=== PATIENT | female | born 1965 | race Caucasian/White ===

== ENCOUNTER 2019-01-14 14:22 | Observation (INO) ==
[2019-01-14] MEDS ORDERED: IOPAMIDOL 100 ML BOTTLE IV ONE (14:23)
[2019-01-14] MEDS ORDERED: METHOCARBAMOL 1,000 MG/10 ML VIAL IV ONE (15:05)
--- NOTE | 2019-01-14 15:09 | Emergency Department Note ---
General Adult HPI - General Chief complaint: Rib Pain Stated complaint: left rib pain, sob Time Seen by Provider: 01/14/19 15:04 Source: patient Mode of arrival: ambulatory Limitations: no limitations - History of Present Illness HPI Narrative: 53-year-old female patient presents to the clinic with one day history of left chest wall pain. Patient tells me she was backing away from a group of bees on her porch yesterday when she inadvertently tripped falling backwards. She describes falling approximately 2 feet down on some form of metallic bar. Since that time she's had severe pain. She admits to a nonproductive cough since the injury. She is a current daily smoker. She admits to drinking alcohol frequently. Her last intake of alcohol was last Thursday. She admits to mild shortness of breath secondary to pain with deep breathing. She denies any fever, sweats, chills, palpitations, abdominal pain, nausea, vomiting, or diarrhea. - Related Data Home Medications Medication Instructions Recorded Confirmed Sertraline [Zoloft] 12.5 mg PO DAILY 07/01/17 07/05/17 Previous Rx's Medication Instructions Recorded Albuterol Sulfate [Proair Hfa] 8.5 gm IH Q4-5HP PRN #1 hfa.[email or web address] 07/01/17 traMADol [Ultram] 50 mg PO Q4-6HP PRN #14 tab 07/01/17 traMADol [Ultram] 50 mg PO Q6HP PRN #40 tab 07/05/17 Allergies Allergy/AdvReac Type Severity Reaction Status Date / Time codeine Allergy Intermediate Other Verified 07/01/17 05:13 Review of Systems All systems ED: reviewed and negative except as stated. Past Medical History - Past Medical History Medical history: Reports: non-contributory Surgical history ED: Reports: non-contributory - Social History smoking status: Current every day smoker Alcohol use: Reports: Rarely Drug use: Reports: none Physical Exam Limitations: no limitations General appearance: alert, in no apparent distress, tearful Head: atraumatic, normocephalic Eye: Present: normal appearance, PERRL, EOMI. Absent: scleral icterus, conjunctival injection ENT: normal oropharynx, mucous membranes moist Neck: Present: trachea midline. Absent: lymphadenopathy, thyromegaly Chest: Present: normal inspection, symmetric chest wall rise, tenderness (posterior left chest wall. No fell segment. No crepitus.) Respiratory: Present: other (rhonchi at the bases. Decreased lung sounds throughout.). Absent: wheezes Cardiovascular: Present: tachycardia, normal heart sounds. Absent: systolic murmur, diastolic murmur Abdominal: Present: soft. Absent: distention, tenderness Extremities: Absent: pedal edema, pretibial edema, calf tenderness Back: Present: normal inspection. Absent: vertebral tenderness Neurological: Present: alert, oriented X3 Psychiatric: Present: anxious, tearful Skin: Present: warm, dry, intact, other (no obvious hematoma at the site of impact.) Course Course Narrative: Patient was brought into emergency departments and the history of physical exam is performed. Saline lock was established routine laboratory studies were drawn. X-ray of both her chest and left rib cage were obtained. After returning from radiology she was given 0.5 of Dilaudid and Robaxin 1000 mg slow IV push. During administration she became somewhat nauseated and displayed suspicious jerking activity. Upon reevaluation the patient was feeling slightly better. Her pain is decreased to 5/10. She was actively nauseated and vomiting. She was given Zofran 4 mg IV push. She continued to be tachycardic 120s. She vomited a second time and a repeat Zofran 4 mg IV push was provided. I reviewed her laboratory studies. Her CBC showed a normal white blood cell count 6.9. Red blood cells 4.96, hemoglobin elevated at 17.4, hematocrit elevated at 52.1, MCV elevated at 104.9. She showed no left shift. CMP chloride 94, anion gap elevated 21.0, AST 123, ALT 56, alkaline phosphatase 128, troponin less than 0.01. Upon reevaluation patient continued to be very anxious, tachycardic, and in moderate pain. After reviewing the previous laboratory studies I consulted with my collaborating physician Dr. Stewart about my concerns. At this time it was thought to work her up for PE. The d-dimer was obtained and was elevated at 1.29. CT angiogram of the chest was obtained that did not show any acute PE. There was noted emphysematous changes and pulm onary hypertension associated with her COPD. I reevaluated the patient once again and informed her that no embolus was noted. I had a lengthy conversation about alcohol use with her. She admitted once again to drinking heavily but was very jacobsen in telling me "I have not had anything to drink since his last Thursday". Suspecting some form of alcohol withdrawal, she was given 1 mg of Ativan IV. Upon reassessment she tells me she feels a bit more calm. We were about to discharge her from the emergency department when she was noted to be profoundly hypoxic on room air. Her SPO2 decreased to 83 on room air. We placed her back on the oxygen via nasal cannula at 2 L/m. I contacted my collaborating physician once again who reevaluated the patient with me. He recommended DuoNeb treatment and was provided to the patient. During repeat assessment she was still noted to be tachycardic and hypoxic. A second DuoNeb treatment was provided. Unfortunately, her SPO2 remained 9091 on 2 L/m. A blood gas was ordered, obtained, and reviewed showing hypoxia with a PO2 of 54, PH 7.41, PCO2 40, HCO3 25.4. After reviewing all the data and consulting with my collaborative physician once again, it was thought best that the patient should be admitted to the hospital for further evaluation and management. I reached out to the hospitalist commercial front load operator and expressed my concerns about the patient. At this time he has consented to admit the patient to the hospital. All further treatment decisions will be carried out by the hospitalist at this time. Vital Signs Temperature 98.7 F 01/14/19 14:23 Pulse Rate 158 H 01/14/19 14:23 Respiratory Rate 28 H 01/14/19 14:23 Blood Pressure 151/103 01/14/19 14:23 Pulse Oximetry (%) 91 01/14/19 14:23 Temperature 98.3 F 01/14/19 21:35 Pulse Rate 107 H 01/14/19 22:01 Respiratory Rate 18 01/14/19 22:01 Blood Pressure 112/72 01/14/19 22:01 Pulse Oximetry (%) 94 01/14/19 22:01 Medical Decision Making - Medical Records Medical records reviewed: Yes I reviewed the patient's medical records. - Lab Data Lab results reviewed: Yes I reviewed the patient's lab results. Result diagrams: 01/14/19 15:12 01/14/19 15:12 Lab Results 05/24/19 05/24/19 05/24/19 Range/Units 15:12 15:12 15:12 WBC 6.9 (4.5-11.0) K/mcL RBC 4.96 (4.00-5.20) M/mcL Hgb 17.4 H (12.0-15.0) g/dL Hct 52.1 H (36.0-48.0) % MCV 104.9 H (80.0-100.0) fL MCH 35.0 H (26.0-34.0) pg MCHC 33.4 (31.0-36.0) g/dL RDW 14.5 (11.5-14.5) % Plt Count 280 (140-440) K/mcL MPV 8.2 (7.4-10.4) fL Gran % 61.5 (38.0-78.0) % Lymph % (Auto) 29.0 (15.5-49.0) % [place] % (Auto) 7.9 (1.0-12.0) % Eos % (Auto) 1.2 (0.0-7.0) % Baso % (Auto) 0.4 (0.0-2.0) % Gran # 4.3 (1.8-8.0) K/mcL Lymph # (Auto) 2.0 (1.5-4.8) K/mcL [place] # (Auto) 0.6 (0.1-0.9) K/mcL Eos # (Auto) 0.1 (0.0-0.7) K/mcL Baso # (Auto) 0 (0.0-0.3) K/mcL D-Dimer 1.29 H (0.00-0.40) ug/ml Sodium 138 (133-145) mmol/L Potassium 3.8 (3.3-5.1) mmol/L Chloride 94 L (96-108) mmol/L Carbon Dioxide 23 (22-30) mmol/L Anion Gap 21.0 H (8-16) BUN 10 (6-20) mg/dl Creatinine 0.6 (0.6-1.1) mg/dl GFR Calculation 103 Glucose 88 (70-105) mg/dL Calcium 8.9 (8.6-10.4) mg/dl Total Bilirubin 0.7 (0.0-1.0) mg/dL AST 123 H (0-37) U/l ALT 56 H (0-40) U/l Alkaline Phosphatase 128 H (39-117) U/L Troponin T (0-0.03) ng/ml Total Protein 7.9 (5.9-8.4) gm/dL Albumin 4.5 (3.2-5.2) gm/dL Globulin 3.4 (2.2-3.7) gm/dL Albumin/Globulin Ratio 1.3 (1.0-2.3) 01/14/19 Range/Units 15:12 WBC (4.5-11.0) K/mcL RBC (4.00-5.20) M/mcL Hgb (12.0-15.0) g/dL Hct (36.0-48.0) % MCV (80.0-100.0) fL MCH (26.0-34.0) pg MCHC (31.0-36.0) g/dL RDW (11.5-14.5) % Plt Count (140-440) K/mcL MPV (7.4-10.4) fL Gran % (38.0-78.0) % Lymph % (Auto) (15.5-49.0) % [place] % (Auto) (1.0-12.0) % Eos % (Auto) (0.0-7.0) % Baso % (Auto) (0.0-2.0) % Gran # (1.8-8.0) K/mcL Lymph # (Auto) (1.5-4.8) K/mcL [place] # (Auto) (0.1-0.9) K/mcL Eos # (Auto) (0.0-0.7) K/mcL Baso # (Auto) (0.0-0.3) K/mcL D-Dimer (0.00-0.40) ug/ml Sodium (133-145) mmol/L Potassium (3.3-5.1) mmol/L Chloride (96-108) mmol/L Carbon Dioxide (22-30) mmol/L Anion Gap (8-16) BUN (6-20) mg/dl Creatinine (0.6-1.1) mg/dl GFR Calculation Glucose (70-105) mg/dL Calcium (8.6-10.4) mg/dl Total Bilirubin (0.0-1.0) mg/dL AST (0-37) U/l ALT (0-40) U/l Alkaline Phosphatase (39-117) U/L Troponin T < 0.01 (0-0.03) ng/ml Total Protein (5.9-8.4) gm/dL Albumin (3.2-5.2) gm/dL Globulin (2.2-3.7) gm/dL Albumin/Globulin Ratio (1.0-2.3) - Radiology Data Radiology results reviewed: Yes I reviewed the patient's radiology results. - EKG Data EKG #1 EKG attestation: Yes I reviewed and interpreted this EKG. EKG results narrative: Sinus tachycardia 132 bpm. Normal axis. No ectopy or ST segment changes seen. Disposition Pt seen by PRESSURE WELDER/PA only: No (Pat) Clinical Impression: Hypoxia, Anxiety Contusion of rib on left side Qualifiers: Encounter type: initial encounter Qualified Code(s): S20.212A - Contusion of left front wall of thorax, initial encounter COPD (chronic obstructive pulmonary disease) Qualifiers: COPD type: unspecified COPD Qualified Code(s): J44.9 - Chronic obstructive pulmonary disease, unspecified Disposition: Xfer As Inpt ([facility]) Condition: Fair Instructions: Hypoxia (ED) Additional Instructions: Patient is being admitted to the hospital. All follow on care will be performed at the direction of the hospitalist. Time of Disposition: 22:25
--- NOTE | 2019-01-14 15:09 | XRay Report ---
CLINICAL INFORMATION: fall, sob COMPARISON: 07/01/2017 FINDINGS: Heart size, mediastinum and pulmonary vessels are normal. Lungs are clear. No effusions or evidence of pneumothorax. Left ribs are normal. IMPRESSION: Negative Interpreted and Authenticated by: Jerel Baxter 01/14/19
[2019-01-14] MEDS: HYDROmorphone 2 MG/ML VIAL IV PRN ×2 (15:20→23:40)
[2019-01-14] MEDS ORDERED: ONDANSETRON 4 MG/2 ML VIAL IV ONE ×2 (15:30→16:55)
[2019-01-14 16:54] LABS: Basophils # (Auto) 0 K/mcL (0.0-0.3); Basophils % (Auto) 0.4 % (0.0-2.0); Eosinophils # (Auto) 0.1 K/mcL (0.0-0.7); Eosinophils % (Auto) 1.2 % (0.0-7.0); Granulocytes % (Auto) 61.5 % (38.0-78.0); Hematocrit 52.1 % (36.0-48.0); Hemoglobin 17.4 g/dL (12.0-15.0); Mean Cell Volume 104.9 fL (80.0-100.0); Mean Corpuscular HGB Conc 33.4 g/dL (31.0-36.0); Mean Platelet Volume 8.2 fL (7.4-10.4); Monocytes # (Auto) 0.6 K/mcL (0.1-0.9); Monocytes % (Auto) 7.9 % (1.0-12.0); Platelet Count 280 K/mcL (140-440); RBC 4.96 M/mcL (4.00-5.20); Red Cell Distribution Width 14.5 % (11.5-14.5); WBC 6.9 K/mcL (4.5-11.0)
[2019-01-14 17:04] LABS: ALT/SGPT 56 U/l (0-40); AST/SGOT 123 U/l (0-37); Albumin 4.5 gm/dL (3.2-5.2); Albumin/Globulin Ratio 1.3 (1.0-2.3); Alkaline Phosphatase 128 U/L (39-117); Bilirubin,Total 0.7 mg/dL (0.0-1.0); Blood Urea Nitrogen 10 mg/dl (6-20); Calcium 8.9 mg/dl (8.6-10.4); Carbon Dioxide 23 mmol/L (22-30); Chloride 94 mmol/L (96-108); Globulin 3.4 gm/dL (2.2-3.7); Glomerular Filtration Rate 103; Glucose 88 mg/dL (70-105); Potassium 3.8 mmol/L (3.3-5.1); Sodium 138 mmol/L (133-145)
[2019-01-14] MEDS ORDERED: 0.9 % SODIUM CHLORIDE 1,000 ML IV ONE ×2 (17:36→23:26)
--- NOTE | 2019-01-14 18:47 | Cat Scan Report ---
CLINICAL INFORMATION: Shortness of breath and tachycardia COMPARISON: None. TECHNIQUE: 80 cc of Isovue-300 were injected intravenously. Using SmartPrep to maximize pulmonary artery opacification, 2.5 mm helical slices were obtained from the lung apices through the lung bases. Following reconstruction, 2.5 mm sagittal, coronal, and axial reformations were processed. The exam was reviewed at mediastinal, lung, and bone windows. The exam was performed using radiation dose optimization techniques including, but not limited to, automated exposure control, adjustment of the mA and/or kV according to patient size and use of iterative reconstruction technique. FINDINGS: The central pulmonary arteries enlarged: The main pulmonary diameter of 3 cm. This suggests pulmonary hypertension. The pulmonary arteries are well opacified without evidence of embolus. The thoracic aorta is normal in contour and caliber. There is no adenopathy in the mediastinal hilar or axillary region. Heart is normal in size and configuration without plaque in the coronary arteries. Esophagus is unremarkable. Pulmonary parenchymal windows show mild centrilobular emphysema featuring scattered bullae in the upper lobes and chronic bronchitis with elevated lung volumes and wall thickening of the bronchi. There is slight excess perfusion of the right middle lobe of doubtful clinical significance. There are no effusions or regional infiltrates. No nodules. Pleural spaces are normal. Bones and soft tissue the chest wall are unremarkable IMPRESSION: 1. Mild centrilobular emphysema 2. No evidence of pulmonary embolus. Enlargement central pulmonary arteries is suggestive of pulmonary hypertension related to COPD. 3. Moderate dilatation of the common bile duct: 15 mm. This is likely related to post cholecystectomy papillary stenosis. Interpreted and Authenticated by: Jerel Baxter 01/14/19
[2019-01-14] MEDS ORDERED: LORazepam 2 MG/ML VIAL IV ONE ×2 (19:10→20:29)
[2019-01-14] MEDS ORDERED: IPRATROPIUM/ALBUTEROL 3 ML AMPUL.NEB NEB ONE ×2 (20:30→20:58)
--- NOTE | 2019-01-14 22:09 | Internal Med History&Physical ---
Medical - H&P: [facility] Patient information: Note initiated : 01/14/19 at 10:09 pm Service Date, if different from initiated Date: [] Patient: Elise Chu a 53 y/o F admitted on for left rib pain, sob. Chief Complaint: [] Chief complaint: fall/left-sided chest pain History of present illness: Ms. Chu is a 53 year old F who lives fairly independently and carrying history of smoking or alcohol fell backward landing on a metallic bar on her left chest/back on the in an attempt to avoid bees. Over the next 24 hours patient has been experiencing increasing pleuritic chest pain involving the left side. She hasn't been able to eat or drink. She has associated increasing shortness of breath thereby prompting her to come to the ER. Initial workup was negative for acute fracture however patient was profoundly tachycardic and in distress with hypoxia requiring 8 L oxygen. Hospitalist service was consulted for admission Evaluation patient is very anxious. She was able to answer most questions and endorse history as above. She remains tremulous with heart rate over 110. She endorses to stressors in life including recent loss of job and her mother. She denies lightheadedness, palpitation, chest pressure or diaphoresis. She further denies diarrhea dysuria, weight loss, glandular swelling, fever chills. She further denies head injury. Review of systems 10 point review of system was performed and is negative except as discussed above Medical - H&P: PMH Medical history: Follows up with [facility] History of alcoholism Likely COPD from smoking Anxiety disorder Degenerative joint disease Pertinent family history: Mother Alzheimer's Social history: Lives alone Currently looking for a job Active smoker 3 times a week alcohol Functional capacity: independent ambulation Smoking status: Current every day smoker Have you smoked in the last 12 months: Yes Time spent discussing smoking cessation with patient: 3 to 10 minutes Drug use: none Alcohol use: heavy Medical - H&P: Meds Home Medications Medication Instructions Recorded Confirmed Type Albuterol Sulfate [Proair Hfa] 8.5 gm IH Q4-5HP PRN #1 hfa.aer.ad 07/01/17 01/14/19 Rx Allergies Allergy/AdvReac Type Severity Reaction Status Date / Time codeine AdvReac Mild Stomach Verified 01/15/19 07:49 Cramping/Vomiting Medical - H&P: Exam - Constitutional Vitals: Temp Pulse Resp BP Pulse Ox 98.3 F 107 H 18 112/72 94 01/14/19 21:35 01/14/19 22:01 01/14/19 22:01 01/14/19 22:01 01/14/19 22:01 General appearance: moderate distress (anxious) Exam: Alert and oriented Head normocephalic Neck no lymphadenopathy Oral cavity dry No eardischarge S1 and S2 tachycardia Diminished breath sounds bases, left-sided chest wall no evidence of bruise or localized swelling but tender to palpation Abdomen soft nontender Lower extremity no cyanosis clubbing Skin no suspicious lesion Psych alert cooperative but anxious Neuro nonfocal moving all 4 extremities Medical - H&P: Reslt - Labs CBC & Chem 7: 01/15/19 03:23 01/15/19 03:23 Labs: Short CBC 01/14/19 Range/Units 15:12 WBC 6.9 (4.5-11.0) K/mcL Hgb 17.4 H (12.0-15.0) g/dL Hct 52.1 H (36.0-48.0) % Plt Count 280 (140-440) K/mcL BMP 01/14/19 15:12 Sodium 138 Potassium 3.8 Chloride 94 L Carbon Dioxide 23 BUN 10 Creatinine 0.6 Glucose 88 Calcium 8.9 Cardiac Enzymes 01/14/19 Range/Units 15:12 Troponin T < 0.01 (0-0.03) ng/ml Liver Function 01/14/19 Range/Units 15:12 Total Bilirubin 0.7 (0.0-1.0) mg/dL AST 123 H (0-37) U/l ALT 56 H (0-40) U/l Alkaline Phosphatase 128 H (39-117) U/L Albumin 4.5 (3.2-5.2) gm/dL Medical - H&P: A/P (1) Rib contusion Current visit: No Status: Acute * Pulmonary contusion secondary to fall. Aggressive incentive spirometer use, lidocaine patch. * COPD exacerbation-start bronchodilators * Hyoxic respiratory failure- likely primary contusion, underlying COPD. Continue bronchodilators/pulmonary toilet * ETOH withdrawl-start Librium, for alcohol as needed * Elevated LFTS- likely secondary to alcoholism. Liver ultrasound * Anxiety disorder-continue SSRI * Full code * Prophylaxis heparin PLAN * Obs Admit/tele * Bronchodilators/O2 * Etoh withdrawl management * Liver ultrasound
[2019-01-14] MEDS ORDERED: ACETAMINOPHEN 325 MG TABLET PO PRN (23:37)
[2019-01-14] MEDS ORDERED: ONDANSETRON 4 MG/2 ML VIAL IV PRN (23:37)
[2019-01-14] MEDS ORDERED: MAGNESIUM SULFATE 2 GM/50 ML BAG IV PRN (23:37)
[2019-01-14] MEDS ORDERED: ACETAMINOPHEN 1,000 MG/100 ML BOTTLE IV PRN (23:37)
[2019-01-14] MEDS ORDERED: guaiFENesin/CODEINE 10 ML UDC PO PRN (23:37)
[2019-01-14] MEDS ORDERED: traZODone HCL 50 MG TABLET PO PRN (23:37)
[2019-01-14] MEDS ORDERED: LEVALBUTEROL 0.63 MG/3 ML AMPUL.NEB NEB PRN (23:37)
[2019-01-14] MEDS ORDERED: POTASSIUM CHLORIDE 20 MEQ PACKET PO PRN (23:37)
[2019-01-14] MEDS: 0.9 % SODIUM CHLORIDE 1,000 ML IV SCH (23:40)
[2019-01-15] MEDS: HYDROcodone/APAP 5/325MG TABLET PO PRN ×6 (00:01→20:26)
[2019-01-15] MEDS: IPRATROPIUM/ALBUTEROL 3 ML AMPUL.NEB NEB SCH ×7 (00:01→23:03)
[2019-01-15] MEDS ORDERED: HYDROcodone/APAP 5/325MG TABLET PO ONE ×2 (00:04→03:34)
[2019-01-15] MEDS ORDERED: IPRATROPIUM/ALBUTEROL 3 ML AMPUL.NEB NEB ONE ×3 (00:04→07:13)
[2019-01-15] MEDS: 0.9 % SODIUM CHLORIDE 1,000 ML IV SCH ×3 (00:32→22:13)
[2019-01-15] MEDS ORDERED: chlordiazePOXIDE 25 MG CAPSULE PO ONE (02:01)
[2019-01-15] MEDS: chlordiazePOXIDE 25 MG CAPSULE PO PRN ×2 (02:05→20:26)
[2019-01-15] MEDS ORDERED: ONDANSETRON 4 MG/2 ML VIAL ONE (03:35)
[2019-01-15] MEDS: 0.9 % SODIUM CHLORIDE 10 ML SYRINGE IV SCH ×3 (05:38→22:14)
[2019-01-15 05:52] LABS: Hematocrit 38.3 % (36.0-48.0); Hemoglobin 13.1 g/dL (12.0-15.0); Mean Platelet Volume 8.1 fL (7.4-10.4); Platelet Count 182 K/mcL (140-440); RBC 3.65 M/mcL (4.00-5.20); Red Cell Distribution Width 14.7 % (11.5-14.5); WBC 6.9 K/mcL (4.5-11.0)
[2019-01-15 06:14] LABS: ALT/SGPT 79 U/l (0-40); AST/SGOT 183 U/l (0-37); Albumin 3.2 gm/dL (3.2-5.2); Albumin/Globulin Ratio 1.4 (1.0-2.3); Alkaline Phosphatase 131 U/L (39-117); Bilirubin,Direct 0.9 mg/dL (0.0-0.3); Bilirubin,Total 1.6 mg/dL (0.0-1.0); Blood Urea Nitrogen 10 mg/dl (6-20); Calcium 7.1 mg/dl (8.6-10.4); Carbon Dioxide 26 mmol/L (22-30); Chloride 97 mmol/L (96-108); Gamma Glutamyl Transpeptidase 320 U/L (5-36); Globulin 2.3 gm/dL (2.2-3.7); Glomerular Filtration Rate 109; Glucose 95 mg/dL (70-105); Lactate Dehydrogenase 226 U/L (94-250); Phosphorous 3.1 mg/dL (2.7-4.5); Potassium 2.8 mmol/L (3.3-5.1); Sodium 135 mmol/L (133-145); Triglycerides 86 mg/dl (<150); Uric Acid 5.4 mg/dL (2.5-8.0)
[2019-01-15 06:50] LABS: Band Neutrophils % 5 % (0-10); Eosinophils % (Manual) 3 % (0-7); Lymphocytes % 19 % (15-49); Microcytosis 1+ (NONE SEEN); Monocytes % (Manual) 6 % (1-12); Platelet Estimate NORMAL (NORMAL); RBC Morphology ABNORM (NORMAL); Segmented Neutrophils % 67 % (38-78)
[2019-01-15] MEDS: DOCUSATE SODIUM 100 MG CAPSULE PO SCH ×2 (08:24→20:26)
[2019-01-15] MEDS: THIAMINE 100 MG TABLET PO SCH (08:24)
[2019-01-15] MEDS: MULTIVIT,THER IRON,CA,FA & MIN 1 TABLET PO SCH (08:24)
[2019-01-15] MEDS: CYANOCOBALAMIN (VITAMIN B-12) 500 MCG TABLET PO SCH ×2 (08:25→20:27)
[2019-01-15] MEDS: HEPARIN 5,000 UNIT/ML VIAL SQ SCH ×2 (08:25→20:29)
[2019-01-15] MEDS ORDERED: POTASSIUM CHLORIDE 20 MEQ PACKET PO ONE (09:40)
--- NOTE | 2019-01-15 10:03 | Internal Med Progress Note ---
Medical - PN: Subj Patient information: Note initiated : 01/15/19 at 9:59 am Service Date, if different from initiated Date: [] Patient: Elise Chu 53 y/o F admitted on 01/14/19 for left rib pain, sob. Chief Complaint: [] Interval history: Ms. Chu is a 53 year old F who lives fairly independently and carrying history of smoking or alcohol fell backward landing on a metallic bar on her left chest/back on the in an attempt to avoid bees. Over the next 24 hours patient has been experiencing increasing pleuritic chest pain involving the left side. She hasn't been able to eat or drink. She has associated increasing shortness of breath thereby prompting her to come to the ER. Initial workup was negative for acute fracture however patient was profoundly tachycardic and in distress with hypoxia requiring 8 L oxygen. Hospitalist service was consulted for admission Evaluation patient is very anxious. She was able to answer most questions and endorse history as above. She remains tremulous with heart rate over 110. She endorses to stressors in life including recent loss of job and her mother. She denies lightheadedness, palpitation, chest pressure or diaphoresis. She further denies diarrhea dysuria, weight loss, glandular swelling, fever chills. She further denies head injury. 01/15-patient looking better. Tachycardia improved now in mid 90s. Low magnesium and potassium on replacement. Continuing Librium for withdrawal symptoms. We'll 50 cc bedside incentive spirometer. Improving localized pain. Start lidocaine patch. Continue nutritional support/PT OT. LFTs elevated. Li deandra ultrasound. Await echocardiogram. - Constitutional Vitals: Vital Signs Temp Pulse Resp BP Pulse Ox 98.9 F 90 22 97/65 91 01/15/19 07:38 01/15/19 07:23 01/15/19 07:38 01/15/19 07:38 01/15/19 07:38 Period Temp Pulse Resp BP Sys/Moses Pulse Ox Last 24 Hr 98.3 F-98.9 F 73-158 12-29 96-175/61-148 84-99 Intake and Output 01/14/19 01/15/19 01/15/19 21:59 05:59 13:59 Intake Total 1000 2740 Output Total 525 Balance 1000 2215 Weight 128 lb 131 lb 9.6 oz Intake & Output: Intake & Output 01/14/19 01/15/19 01/15/19 21:59 05:59 13:59 Intake Total 1000 2740 Output Total 525 Balance 1000 2215 Weight 128 lb 131 lb 9.6 oz Intake: IV 1000 2000 Sodium Chloride 0.9% 1,000 ml @ 1000 2000 Wide Open IV BOLUS DOUGLAS Rx#: [id number] Oral 740 Output: Void Amount 375 Stool 150 Other: Meal Two pieces of toast Percent of Meal Consumed 100% Feeding Ability Independent Urine Appearance Clear Urine Color Light [place] Urine Odor Strong Stool Size Moderate Stool Color Brown Green # Bowel Movements 1 General appearance: no acute distress Exam: Alert and oriented Tachycardia resolved Diminished breath sounds bases Abdomen soft nontender Medical - PN: Obj Da - Labs CBC & Chem 7: 01/15/19 03:23 01/15/19 03:23 Labs: Abnormal Lab Results 01/15/19 01/15/19 01/14/19 03:23 03:23 15:12 RBC 3.65 L Hgb Hct MCV 105.0 H MCH 35.8 H RDW 14.7 H RBC Morphology Abnorm A Microcytosis 1+ A D-Dimer 1.29 H Potassium 2.8 L* Chloride Anion Gap Creatinine 0.5 L Calcium 7.1 L Magnesium 1.0 L Total Bilirubin 1.6 H Direct Bilirubin 0.9 H GGT 320 H AST 183 H ALT 79 H Alkaline Phosphatase 131 H Total Protein 5.5 L 01/14/19 01/14/19 15:12 15:12 RBC Hgb 17.4 H Hct 52.1 H MCV 104.9 H MCH 35.0 H RDW RBC Morphology Microcytosis D-Dimer Potassium Chloride 94 L Anion Gap 21.0 H Creatinine Calcium Magnesium Total Bilirubin Direct Bilirubin GGT AST 123 H ALT 56 H Alkaline Phosphatase 128 H Total Protein Meds: Medications Acetaminophen (Tylenol) 650 mg PO Q4-6HP PRN PRN Reason: PAIN/FEVER > 101 Hydrocodone Bitart/Acetaminophen ([place] 5/325mg) 0 tab PO Q4HP PRN PRN Reason: PAIN LEVEL 3-6 Last Admin: 01/15/19 08:37 Dose: 2 tab Documented by: Albuterol/Ipratropium (Duoneb) 3 ml NEB Q4HRT [facility] Last Admin: 01/15/19 07:14 Dose: 3 ml Documented by: Chlordiazepoxide HCl (Librium) 25 mg PO Q4HP PRN PRN Reason: Alcohol Withdrawal Last Admin: 01/15/19 02:05 Dose: 25 mg Documented by: Cyanocobalamin (Vitamin B-12) 1,000 mcg PO BID [facility] Stop: 01/19/19 21:01 Last Admin: 01/15/19 08:25 Dose: 1,000 mcg Documented by: Docusate Sodium (Colace) 100 mg PO BID [facility] Last Admin: 01/15/19 08:24 Dose: 100 mg Documented by: Guaifenesin/Codeine Phosphate (Robitussin Ac) 10 ml PO Q4HP PRN PRN Reason: Cough Heparin Sodium (Porcine) (Heparin) 5,000 unit SQ Q12 [facility] Last Admin: 01/15/19 08:25 Dose: 5,000 unit Documented by: Magnesium Sulfate (Magnesium Sulfate) 2 gm in 50 mls @ 50 mls/hr IV UD PRN PRN Reason: MG = or < 1.7 Last Admin: 01/15/19 08:15 Dose: 50 mls/hr Documented by: Sodium Chloride (Sodium Chloride 0.9%) 1,000 mls @ 50 mls/hr IV .Q20H [facility] Stop: 01/17/19 11:36 Last Admin: 01/15/19 00:32 Dose: 50 mls/hr Documented by: Sodium Chloride (Sodium Chloride 0.9%) 1,000 mls @ 0 mls/hr IV BOLUS [facility] Last Infusion: 01/15/19 00:40 Dose: Infused Documented by: Acetaminophen (Ofirmev) 1,000 mg in 100 mls @ 200 mls/hr IV Q6HP PRN PRN Reason: PAIN/FEVER > 101 Iron Carb/Multivit/Dictaphone Mechanic/Folic Acid (Multivitamin W/Minerals) 1 tab PO DAILY [facility] Last Admin: 01/15/19 08:24 Dose: 1 tab Documented by: Levalbuterol HCl (Xopenex) 0.63 mg NEB Q4HP PRN PRN Reason: Shortness Of Breath Lidocaine (Lidoderm) 1 patch TOPICAL DAILY@1000 DOUGLAS Lidocaine (Lidoderm) 0 patch TOPICAL DAILY@2200 DOUGLAS Ondansetron HCl (Zofran) 4 mg IV Q4-6HP PRN PRN Reason: Nausea And Vomiting Last Admin: 01/15/19 03:33 Dose: 4 mg Documented by: Potassium Chloride (Klor-Con) 40 meq PO DAILYP PRN PRN Reason: K+ < 3.5 Last Admin: 01/15/19 08:15 Dose: 40 meq Documented by: Senna/Docusate Sodium (Senna Plus Tablet) 1 tab PO HS DOUGLAS Sodium Chloride (Saline Flush) 10 ml IV Q8 DOUGLAS Last Admin: 01/15/19 05:38 Dose: Not Given Documented by: Thiamine HCl (Vitamin B1) 100 mg PO DAILY DOUGLAS Last Admin: 01/15/19 08:24 Dose: 100 mg Documented by: Trazodone HCl (Desyrel) 50 mg PO HSP PRN PRN Reason: Insomnia Medical - PN: A/P - Time Spent With Patient Total time spent is greater than 50% in coordination of care (as documented) at patient's floor/unit and/or counseling patient: 25 - 35 minutes (1) Rib contusion Status: Acute Assessment and plan: * Pleuritic chest pain secondary to fall. Continue incentive spirometer use, lidocaine patch. * COPD clinically improving on bronchodilators * Low potassium and magnesium continue oral/IV replacement * Hyoxic respiratory failure-clinically improved. Oxygen down from 8 L to 2 L. Sats around 90. * ETOH withdrawl- oral Librium, continue thiamine/B12 * Elevated LFTS- consistent with alcoholism AST ALT ratio. Await liver ultrasound * Volume depletion clinically improved with crystalloids * Anxiety disorder-continue SSRI * Full code * Prophylaxis heparin PLAN * Bronchodilators/O2/incentive spirometer/lidocaine patch * Oral and IV potassium and magnesium replacement * Etoh withdrawl management * Await liver US * Nutritional support/PT OT Current Visit: No Medical - PN: Qual - VTE Deep Vein Thrombosis/Pulmonary Embolism Present on Admission: No
[2019-01-15] MEDS: LIDOCAINE PATCH TOPICAL SCH (11:09)
--- NOTE | 2019-01-15 11:33 | Ultrasound Report ---
CLINICAL INFORMATION: increased liver enzymes and bilirubin COMPARISON: None. FINDINGS: The gallbladder is surgically absent. The common bile duct is markedly dilated 16 mm. There is no mass, stone or other cause identified for distal biliary obstruction. Liver and pancreas are normal in size and echotexture without focal lesion. No free fluid IMPRESSION: Marked dilatation of the common bile duct. Although no stone or mass in the intrapancreatic portion of the common bile duct is identified: This region is not well seen sonographically. Consider: Abdominal MRI MRCP Interpreted and Authenticated by: Jerel Baxter 01/15/19
[2019-01-15] MEDS: NICOTINE 14 MG PATCH TOPICAL SCH (14:40)
[2019-01-15] MEDS: SENNOSIDES/DOCUSATE SODIUM 1 TAB TABLET PO SCH ×2 (20:27→20:48)
[2019-01-15] MEDS ORDERED: LIDOCAINE PATCH TOPICAL SCH (22:00)
[2019-01-16] MEDS: 0.9 % SODIUM CHLORIDE 1,000 ML IV SCH (00:42)
[2019-01-16] MEDS: HYDROcodone/APAP 5/325MG TABLET PO PRN ×3 (00:53→09:32)
[2019-01-16] MEDS: IPRATROPIUM/ALBUTEROL 3 ML AMPUL.NEB NEB SCH ×2 (03:34→07:24)
[2019-01-16] MEDS: 0.9 % SODIUM CHLORIDE 10 ML SYRINGE IV SCH (05:14)
[2019-01-16 05:27] LABS: Hematocrit 36.2 % (36.0-48.0); Mean Cell Volume 107.1 fL (80.0-100.0); Mean Corpuscular HGB Conc 33.3 g/dL (31.0-36.0); Mean Platelet Volume 8.3 fL (7.4-10.4); Platelet Count 160 K/mcL (140-440); RBC 3.37 M/mcL (4.00-5.20); Red Cell Distribution Width 14.5 % (11.5-14.5)
[2019-01-16 05:53] LABS: ALT/SGPT 73 U/l (0-40); AST/SGOT 83 U/l (0-37); Albumin 3.3 gm/dL (3.2-5.2); Albumin/Globulin Ratio 1.4 (1.0-2.3); Alkaline Phosphatase 126 U/L (39-117); Bilirubin,Direct 0.2 mg/dL (0.0-0.3); Bilirubin,Total 0.7 mg/dL (0.0-1.0); Blood Urea Nitrogen 8 mg/dl (6-20); Carbon Dioxide 29 mmol/L (22-30); Chloride 102 mmol/L (96-108); Gamma Glutamyl Transpeptidase 369 U/L (5-36); Globulin 2.4 gm/dL (2.2-3.7); Glomerular Filtration Rate 103; Glucose 111 mg/dL (70-105); Lactate Dehydrogenase 173 U/L (94-250); Magnesium 1.7 mg/dL (1.6-2.5); Potassium 4.6 mmol/L (3.3-5.1); Sodium 139 mmol/L (133-145); Triglycerides 82 mg/dl (<150); Uric Acid 4.1 mg/dL (2.5-8.0)
[2019-01-16 07:19] LABS: Anisocytosis FEW (NONE SEEN); Eosinophils % (Manual) 3 % (0-7); Lymphocytes % 26 % (15-49); Macrocytosis 2+ (NONE SEEN); Monocytes % (Manual) 2 % (1-12); Platelet Estimate NORMAL (NORMAL); RBC Morphology ABNORM (NORMAL); Segmented Neutrophils % 69 % (38-78)
[2019-01-16] MEDS: THIAMINE 100 MG TABLET PO SCH (09:27)
[2019-01-16] MEDS: HEPARIN 5,000 UNIT/ML VIAL SQ SCH (09:27)
[2019-01-16] MEDS: MULTIVIT,THER IRON,CA,FA & MIN 1 TABLET PO SCH (09:28)
[2019-01-16] MEDS: NICOTINE 14 MG PATCH TOPICAL SCH (09:28)
[2019-01-16] MEDS: LIDOCAINE PATCH TOPICAL SCH (09:29)
[2019-01-16] MEDS: DOCUSATE SODIUM 100 MG CAPSULE PO SCH (09:38)
[2019-01-16] MEDS: CYANOCOBALAMIN (VITAMIN B-12) 500 MCG TABLET PO SCH (09:47)
--- NOTE | 2019-01-16 10:40 | Discharge Summary ---
Medical - DS: Prov Patient information: Note initiated : 01/16/19 at 10:33 am Service Date, if different from initiated Date: [] Patient: Elise Chu 53 y/o F admitted on 01/14/19 for left rib pain, sob. Chief Complaint: [] Date of admission: 01/14/19 23:35 Discharge date: 01/16/19 Consults: 01/14/19 Consult to Physician [CONS] Stat Comment: Consulting Provider: Tristan Morgan Reason For Exam: Physician to Consult Medical - DS: Meds - Discharge Medications Prescriptions: HYDROcodone/APAP 5/325MG [[place] 5-325Mg] 1 tab PO Q8HP PRN #14 tablet PRN Reason: Pain Level 3-6 Lidocaine [Lidoderm] 1 patch TOPICAL DAILY@1000 #3 patch Sennosides/Docusate Sodium [Senna Plus Tablet] 1 tab PO HS #30 tab Active and Home Medications: Home Medications Albuterol Sulfate [Proair Hfa] 8.5 gm IH Q4-5HP PRN #1 hfa.aer.ad 07/01/17 [Rx Confirmed 01/14/19 Last Taken Unknown] HYDROcodone/APAP 5/325MG [[place] 5-325Mg] 1 tab PO Q8HP PRN #14 tablet 01/16/19 [Rx Last Taken Unknown] Lidocaine [Lidoderm] 1 patch TOPICAL DAILY@1000 #3 patch 01/16/19 [Rx Last Taken Unknown] Sennosides/Docusate Sodium [Senna Plus Tablet] 1 tab PO HS #30 tab 01/16/19 [Rx Last Taken Unknown] Medical - DS: Hosp Hospital course: Discharge diagnosis * Pleuritic chest pain secondary to fall/contusion. Clinical improvement noted with continued incentive spirometer use, lidocaine patch and as needed opioids. Discharging home in stable state * COPD clinically improving on bronchodilators. Advised to refrain from smoking. ECHO Nl EF 65% * Low potassium and magnesium resolved with oral/IV replacement * Hyoxic respiratory failure-clinically improved. Now on room air * ETOH withdrawl- no significant overnight events. Continued on oral Librium,/thiamine/B12 * Elevated LFTS- consistent with alcoholism AST ALT ratio. Gradual downtrending noted. Liver ultrasound no significant abnormality except for dilated CBD without stone. * Volume depletion clinically resolved with crystalloids * Tobacco dependence-counseled. On nicotine patch * Anxiety stable on SSRI Brief hospital course Ms. Chu is a 53 year old F who lives fairly independently and carrying history of smoking or alcohol fell backward landing on a metallic bar on her left chest/back on the in an attempt to avoid bees. Over the next 24 hours patient has been experiencing increasing pleuritic chest pain involving the left side. She hasn't been able to eat or drink. She has associated increasing shortness of breath thereby prompting her to come to the ER. Initial workup was negative for acute fracture however patient was profoundly tachycardic and in distress with hypoxia requiring 8 L oxygen. Hospitalist service was consulted for admission Evaluation patient is very anxious. She was able to answer most questions and endorse history as above. She remains tremulous with heart rate over 110. She endorses to stressors in life including recent loss of job and her mother. She denies lightheadedness, palpitation, chest pressure or diaphoresis. She further denies diarrhea dysuria, weight loss, glandular swelling, fever chills. She further denies head injury. 01/15-patient looking better. Tachycardia improved now in mid 90s. Low magnesium and potassium on replacement. Continuing Librium for withdrawal s ymptoms. Continue bedside incentive spirometer. Improving localized pain. Start lidocaine patch. Continue nutritional support/PT OT. LFTs elevated. Liver ultrasound. Await echocardiogram. 01/16- LFTs downtrending. No signs of withdrawal. Clinical improvement. Tachycardia resolved. Tolerating diet. Left-sided rib pain/pleuritic chest pain much improved. Requesting discharge. Liver ultrasound no significant finding except for dilated CBD without stone. No elevation in bilirubin. LFTs downtrending. ECHO Nl EF 65%. Discharge with instructions and medications as below. Recommend following up with [facility]. Counseled on smoking and alcohol cessation Discharge diagnosis: . - Time Spent with Patient Total time spent providing and/or coordinating discharge services: Greater than 30 minutes Medical - DS: Exam - Constitutional Vitals: Vital Signs Temp Pulse Resp BP Pulse Ox 01/16/19 08:00 98.3 F 14 122/76 95 01/16/19 07:34 78 14 01/16/19 07:25 96 01/16/19 03:41 98.3 F 98 H 28 H 116/78 95 01/16/19 02:53 101 H 18 93 01/15/19 23:26 97.8 F 100 H 18 103/57 93 01/15/19 23:23 87 18 01/15/19 23:06 98 H 16 103/57 93 01/15/19 19:53 93 01/15/19 19:24 99.5 F H 16 119/76 01/15/19 19:20 100 H 119/76 92 01/15/19 19:00 73 18 01/15/19 16:35 89 94 01/15/19 16:01 97.7 F 96 H 104/70 92 01/15/19 15:00 71 18 01/15/19 12:00 98.8 F 16 114/62 94 01/15/19 11:27 78 16 Intake and Output 01/15/19 01/16/19 01/16/19 21:59 05:59 13:59 Intake Total 2550 1040 Output Total 1300 1350 Balance 1250 -310 Intake: IV 1000 Sodium Chloride 0.9% 1,000 ml @ 1000 50 mls/hr IV .Q20H [facility] Rx#: [id number] Oral 1550 1040 Output: Void Amount 1300 1350 Other: Meal Dinner [place] Percent of Meal Consumed 90 100% Feeding Ability Independent Independent Urine Appearance Clear Urine Color Dark Yellow Weight 139 lb 1.6 oz Medical - DS: Data Labs on day of discharge: Labs from last 24 hours 01/16/19 01/16/19 03:35 03:35 WBC 5.0 RBC 3.37 L Hgb 12.0 Hct 36.2 MCV 107.1 H MCH 35.7 H MCHC 33.3 RDW 14.5 Plt Count 160 MPV 8.3 Total Counted 100 Seg Neutrophils % 69 Band Neutrophils % Not Reportable Lymphocytes % 26 Monocytes % (Manual) 2 Eosinophils % (Manual) 3 Platelet Estimate Normal RBC Morphology Abnorm A Anisocytosis Few A Macrocytosis 2+ A Sodium 139 Potassium 4.6 Chloride 102 Carbon Dioxide 29 Anion Gap 8.0 BUN 8 Creatinine 0.6 GFR Calculation 103 Glucose 111 H Uric Acid 4.1 Calcium 8.0 L Phosphorus 3.0 Magnesium 1.7 Total Bilirubin 0.7 Direct Bilirubin 0.2 GGT 369 H AST 83 H ALT 73 H Alkaline Phosphatase 126 H Lactate Dehydrogenase 173 Total Protein 5.7 L Albumin 3.3 Globulin 2.4 Albumin/Globulin Ratio 1.4 Triglycerides 82 Medical - DS: A/P - Patient/Caregiver Discharge Instructions Activity: increase activity as tolerated Diet: Regular Diet Additional Instructions: Refrain from smoking and alcohol Continue lidocaine patch and oral Tylenol/hydrocodone as needed for pain relief [facility] P[facility] 5-7 days Prescriptions: HYDROcodone/APAP 5/325MG [[place] 5-325Mg] 1 tab PO Q8HP PRN #14 tablet PRN Reason: Pain Level 3-6 Lidocaine [Lidoderm] 1 patch TOPICAL DAILY@1000 #3 patch Sennosides/Docusate Sodium [Senna Plus Tablet] 1 tab PO HS #30 tab - Problem Maintenance (1) Rib contusion Status: Acute - Follow up Plan Disposition: Home, Self-Care Prognosis: Fair Rehab Potential: Fair I certify that the patient requires SNF services: No Overall status at discharge: patient is progressing back to baseline Medical - DS: Qual - VTE Deep Vein Thrombosis/Pulmonary Embolism Present on Admission: No
== END 2019-01-16 12:50 | disposition home or self-care (01) ==
LOC: ED 14:22 → ICU 14:22
PROVIDERS: ADMIT Internal Medicine; ATTEND Internal Medicine

== ENCOUNTER 2024-07-14 15:21 | Inpatient (IN) ==
[2024-07-14] MEDS ORDERED: IOPAMIDOL 100 ML BOTTLE IV ONE (15:22)
[2024-07-14] MEDS: 0.9 % SODIUM CHLORIDE 1,000 ML IV ONE (16:22)
[2024-07-14] MEDS: HYDROmorphone 1 MG/ML SYRINGE IV ONE (16:22)
[2024-07-14 16:35] LABS: Basophils # (Auto) 0.02 K/mcL (0.00-0.30); Basophils % (Auto) 0.3 % (0.0-2.0); Eosinophils # (Auto) 0.25 K/mcL (0.00-0.70); Eosinophils % (Auto) 4.1 % (0.0-7.0); Hematocrit 49.8 % (34.1-44.9); Hemoglobin 16.3 g/dL (11.2-15.7); Lymphocytes # (Auto) 2.83 K/mcL (1.50-4.80); Lymphocytes % (Auto) 46.5 % (15.5-49.0); Mean Cell Volume 97.5 fL (80.0-100.0); Mean Corpuscular HGB Conc 32.7 g/dL (31.0-36.0); Mean Platelet Volume 9.1 fL (8.8-12.5); Monocytes # (Auto) 0.43 K/mcL (0.10-0.90); Monocytes % (Auto) 7.1 % (1.0-12.0); Neutrophils % (Auto) 41.7 % (38.0-78.0); Platelet Count 280 K/mcL (140-440); RBC 5.11 M/mcL (3.59-5.38); Red Cell Distribution Width 13.2 % (11.5-14.5); WBC 6.1 K/mcL (4.5-11.0)
[2024-07-14] MEDS: KETOROLAC 30 MG/ML VIAL IV ONE (16:43)
[2024-07-14 17:02] LABS: ALT/SGPT 9 U/L (<40); AST/SGOT 17 U/L (<32); Albumin 4.2 gm/dL (3.2-5.2); Albumin/Globulin Ratio 1.4 (1.0-2.3); Alkaline Phosphatase 68 U/L (39-117); Bilirubin,Total < 0.2 mg/dL (0.1-1.0); Blood Urea Nitrogen 9 mg/dL (6-20); Calcium 9.6 mg/dL (8.6-10.4); Carbon Dioxide 24 mmol/L (22-30); Chloride 104 mmol/L (96-108); Globulin 3.1 gm/dL (2.2-3.7); Glomerular Filtration Rate 98; Glucose 109 mg/dL (70-105); Potassium 4.1 mmol/L (3.3-5.1); Sodium 143 mmol/L (133-145)
[2024-07-14] MEDS: IPRATROPIUM/ALBUTEROL 3 ML AMPUL.NEB NEB ONE ×2 (17:43→19:12)
[2024-07-14] MEDS: methylPREDNISolone SOD SUCC 125 MG/2 ML VIAL IV ONE (18:05)
[2024-07-14] MEDS: cefTRIAXone 2 GM in DEXTROSE 5% IN WATER 50 ML IV ONE (18:46)
[2024-07-14] MEDS: AZITHROMYCIN 250 MG TABLET PO ONE (18:46)
[2024-07-14 20:19] LABS: Appearance,Urine Clear (Clear); Bacteria,Urine Few /hpf (0); Bilirubin,Urine Negative (Negative); Color,Urine Yellow; Glucose,Urine (UA) Negative (Negative); Ketones,Urine Negative (Negative); Leukocyte Esterase,Urine Negative /uL (Negative); Nitrate,Urine Negative (Negative); PH,Urine 5.5 (5.0-9.0); Protein,Urine Negative (Negative); Urine Blood Negative ery/mcL (Negative); Urine RBC 1 /hpf (0-3); Urine Squamous Epithelial Cell 6 /hpf (0-4); Urine WBC 2 /hpf (0-4); Urobilinogen,Urine Normal
[2024-07-14] MEDS ORDERED: POLYETHYLENE GLYCOL 3350 17 GM PACKET PO PRN (20:28)
[2024-07-14] MEDS ORDERED: ACETAMINOPHEN 325 MG TABLET PO PRN (20:28)
[2024-07-14] MEDS ORDERED: SENNOSIDES 1 TABLET PO PRN (20:28)
[2024-07-14] MEDS ORDERED: IPRATROPIUM/ALBUTEROL 3 ML AMPUL.NEB NEB PRN (20:28)
[2024-07-14] MEDS ORDERED: POTASSIUM CHLORIDE 20 MEQ TABLET PO PRN ×2 (20:28)
[2024-07-14] MEDS ORDERED: morphine 4 MG/ML VIAL IV PRN (20:28)
[2024-07-14] MEDS ORDERED: POTASSIUM CHLORIDE 40 MEQ in DEXTROSE 5% IN WATER 500 ML IV PRN (20:28)
[2024-07-14] MEDS: BUDESONIDE 0.5 MG/2 ML AMPUL.NEB NEB SCH (21:23)
[2024-07-14] MEDS: PIPERACILLIN SODIUM/TAZOBACTAM 3.375 GM in DEXTROSE 5% IN WATER 50 ML IV ONE (21:28)
[2024-07-14] MEDS: HYDROcodone/APAP 5/325MG TABLET PO PRN (21:33)
[2024-07-14] MEDS: METHOCARBAMOL 750 MG TABLET PO SCH (21:33)
[2024-07-14] MEDS: DOCUSATE SODIUM 100 MG CAPSULE PO SCH (21:34)
[2024-07-14] MEDS: 0.9 % SODIUM CHLORIDE 10 ML SYRINGE IV SCH (21:35)
[2024-07-14] MEDS: methylPREDNISolone SOD SUCC 125 MG/2 ML VIAL IV SCH (22:21)
[2024-07-14] MEDS: ONDANSETRON 4 MG/2 ML VIAL IV PRN (22:21)
[2024-07-14] MEDS: HYDROmorphone 0.5 MG/0.5 ML SYRINGE ONE (23:32)
[2024-07-15] MEDS: IPRATROPIUM/ALBUTEROL 3 ML AMPUL.NEB NEB SCH (00:09)
[2024-07-15] MEDS: PIPERACILLIN SODIUM/TAZOBACTAM 3.375 GM in DEXTROSE 5% IN WATER 100 ML IV SCH (01:38)
[2024-07-15] MEDS: HYDROmorphone 0.5 MG/0.5 ML SYRINGE ONE (05:05)
[2024-07-15 06:36] LABS: ALT/SGPT 8 U/L (<40); AST/SGOT 17 U/L (<32); Albumin 3.9 gm/dL (3.2-5.2); Albumin/Globulin Ratio 1.4 (1.0-2.3); Alkaline Phosphatase 60 U/L (39-117); Bilirubin,Direct < 0.2 mg/dL (0-0.3); Bilirubin,Total 0.2 mg/dL (0.1-1.0); Blood Urea Nitrogen 11 mg/dL (6-20); Calcium 9.9 mg/dL (8.6-10.4); Carbon Dioxide 24 mmol/L (22-30); Chloride 100 mmol/L (96-108); Globulin 2.8 gm/dL (2.2-3.7); Glomerular Filtration Rate 94; Glucose 162 mg/dL (70-105); Lactate Dehydrogenase 137 U/L (135-225); Phosphorous 4.5 mg/dL (2.5-4.5); Potassium 4.3 mmol/L (3.3-5.1); Sodium 139 mmol/L (133-145); Triglycerides 138 mg/dL (<150); Uric Acid 4.7 mg/dL (2.5-8.0)
[2024-07-15] MEDS: METOCLOPRAMIDE 10 MG/2 ML VIAL IV PRN (07:26)
[2024-07-15] MEDS ORDERED: LORazepam 2 MG/ML VIAL IV PRN (07:53)
[2024-07-15] MEDS ORDERED: methylPREDNISolone SOD SUCC 125 MG/2 ML VIAL IV SCH (07:55)
[2024-07-15] MEDS: ENOXAPARIN 40 MG/0.4 ML SYRINGE SQ SCH (08:12)
[2024-07-15] MEDS: methylPREDNISolone SOD SUCC 125 MG/2 ML VIAL IV SCH (08:12)
[2024-07-15] MEDS: MAGNESIUM SULFATE 2 GM/50 ML BAG IV PRN (10:19)
[2024-07-15] MEDS: HYDROmorphone 1 MG/ML SYRINGE IV PRN (10:20)
[2024-07-15] MEDS ORDERED: NICOTINE POLACRILEX 2 MG GUM CHEW/PARK PRN (10:35)
[2024-07-16] MEDS ORDERED: NICOTINE 21 MG PATCH TOPICAL SCH (10:00)
[2024-07-16 12:51] LABS: Basophils # (Auto) 0.01 K/mcL (0.00-0.30); Basophils % (Auto) 0.1 % (0.0-2.0); Eosinophils # (Auto) 0 K/mcL (0.00-0.70); Eosinophils % (Auto) 0 % (0.0-7.0); Hemoglobin 14.6 g/dL (11.2-15.7); Lymphocytes # (Auto) 2.14 K/mcL (1.50-4.80); Lymphocytes % (Auto) 21.1 % (15.5-49.0); Mean Cell Volume 98.7 fL (80.0-100.0); Mean Corpuscular HGB Conc 32.4 g/dL (31.0-36.0); Mean Platelet Volume 9.1 fL (8.8-12.5); Monocytes # (Auto) 0.55 K/mcL (0.10-0.90); Monocytes % (Auto) 5.4 % (1.0-12.0); Neutrophils % (Auto) 72.7 % (38.0-78.0); Platelet Count 247 K/mcL (140-440); RBC 4.56 M/mcL (3.59-5.38); Red Cell Distribution Width 13.7 % (11.5-14.5); WBC 10.1 K/mcL (4.5-11.0)
[2024-07-16 13:03] LABS: ALT/SGPT 9 U/L (<40); AST/SGOT 19 U/L (<32); Albumin 3.8 gm/dL (3.2-5.2); Albumin/Globulin Ratio 1.5 (1.0-2.3); Alkaline Phosphatase 55 U/L (39-117); Bilirubin,Direct < 0.2 mg/dL (0-0.3); Bilirubin,Total 0.2 mg/dL (0.1-1.0); Blood Urea Nitrogen 11 mg/dL (6-20); Calcium 8.8 mg/dL (8.6-10.4); Carbon Dioxide 24 mmol/L (22-30); Chloride 102 mmol/L (96-108); Globulin 2.6 gm/dL (2.2-3.7); Glomerular Filtration Rate 98; Glucose 91 mg/dL (70-105); Lactate Dehydrogenase 155 U/L (135-225); Phosphorous 2.9 mg/dL (2.5-4.5); Sodium 141 mmol/L (133-145); Triglycerides 216 mg/dL (<150); Uric Acid 5.3 mg/dL (2.5-8.0)
[2024-07-19 14:08] LABS: Quant TB Gold + 4T Incubated Negative (Negative); TB2-NIL 0.01 IU/mL
[2024-07-19 17:30] LABS: Aspergillus Antigen NOT DETECTED; Aspergillus Antigen Index <0.50
[2024-07-20 16:50] LABS: Specimen Source SPUTUM
== END 2024-07-15 11:49 | disposition left against medical advice (07) | DRG 189 ==
LOC: ED 15:21 → MEDSUR 20:25
PROVIDERS: ADMIT Internal Medicine; ATTEND Internal Medicine

== ENCOUNTER 2024-07-16 12:02 | Observation (INO) ==
[2024-07-16] MEDS: NICOTINE 21 MG PATCH TOPICAL ONE (13:13)
[2024-07-16] MEDS ORDERED: POTASSIUM CHLORIDE 20 MEQ TABLET PO PRN ×2 (13:50)
[2024-07-16] MEDS ORDERED: POTASSIUM CHLORIDE 40 MEQ in DEXTROSE 5% IN WATER 500 ML IV PRN (13:50)
[2024-07-16] MEDS ORDERED: POLYETHYLENE GLYCOL 3350 17 GM PACKET PO PRN (13:50)
[2024-07-16] MEDS ORDERED: METOCLOPRAMIDE 10 MG/2 ML VIAL IV PRN (13:50)
[2024-07-16] MEDS ORDERED: SENNOSIDES 1 TABLET PO PRN (13:50)
[2024-07-16] MEDS ORDERED: MAGNESIUM SULFATE 2 GM/50 ML BAG IV PRN (13:50)
[2024-07-16] MEDS: BUDESONIDE 0.5 MG/2 ML AMPUL.NEB NEB SCH (14:03)
[2024-07-16] MEDS: IPRATROPIUM/ALBUTEROL 3 ML AMPUL.NEB NEB ONE (14:03)
[2024-07-16] MEDS: IPRATROPIUM/ALBUTEROL 3 ML AMPUL.NEB NEB SCH (14:03)
[2024-07-16] MEDS: methylPREDNISolone SOD SUCC 40 MG/ML VIAL IV SCH (14:31)
[2024-07-16] MEDS: HYDROmorphone 0.5 MG/0.5 ML SYRINGE IV PRN (14:31)
[2024-07-16] MEDS: PIPERACILLIN SODIUM/TAZOBACTAM 3.375 GM in DEXTROSE 5% IN WATER 50 ML IV ONE (14:31)
[2024-07-16] MEDS: 0.9 % SODIUM CHLORIDE 10 ML SYRINGE IV SCH (14:51)
[2024-07-16] MEDS: ACETAMINOPHEN 325 MG TABLET PO PRN (15:22)
[2024-07-16] MEDS: ONDANSETRON 4 MG/2 ML VIAL IV PRN (16:19)
[2024-07-16] MEDS: PIPERACILLIN SODIUM/TAZOBACTAM 3.375 GM in DEXTROSE 5% IN WATER 100 ML IV SCH (17:32)
[2024-07-16] MEDS: oxyCODONE/APAP 5/325MG TABLET PO PRN (18:46)
[2024-07-16] MEDS ORDERED: diphenhydrAMINE 25 MG CAPSULE PO PRN (19:45)
[2024-07-16] MEDS: LORazepam 2 MG/ML VIAL IV PRN (21:31)
[2024-07-16] MEDS: MELATONIN 3 MG TABLET PO SCH (21:33)
[2024-07-16] MEDS: DOCUSATE SODIUM 100 MG CAPSULE PO SCH (21:33)
[2024-07-17] MEDS ORDERED: ENALAPRILAT 1.25 MG/ML VIAL IV PRN (07:52)
[2024-07-17] MEDS: IPRATROPIUM/ALBUTEROL 3 ML AMPUL.NEB NEB PRN (08:30)
[2024-07-17 08:42] LABS: ALT/SGPT 11 U/L (<40); AST/SGOT 15 U/L (<32); Albumin 3.9 gm/dL (3.2-5.2); Albumin/Globulin Ratio 1.4 (1.0-2.3); Alkaline Phosphatase 56 U/L (39-117); Bilirubin,Direct < 0.2 mg/dL (0-0.3); Bilirubin,Total 0.3 mg/dL (0.1-1.0); Blood Urea Nitrogen 14 mg/dL (6-20); Calcium 8.9 mg/dL (8.6-10.4); Carbon Dioxide 26 mmol/L (22-30); Chloride 99 mmol/L (96-108); Globulin 2.8 gm/dL (2.2-3.7); Glomerular Filtration Rate 98; Glucose 150 mg/dL (70-105); Lactate Dehydrogenase 140 U/L (135-225); Phosphorous 3.1 mg/dL (2.5-4.5); Potassium 4.2 mmol/L (3.3-5.1); Sodium 137 mmol/L (133-145); Triglycerides 129 mg/dL (<150); Uric Acid 3.3 mg/dL (2.5-8.0)
[2024-07-17] MEDS: ENOXAPARIN 40 MG/0.4 ML SYRINGE SQ SCH (08:48)
[2024-07-17] MEDS: NICOTINE 21 MG PATCH TOPICAL SCH (09:28)
[2024-07-17] MEDS ORDERED: predniSONE 20 MG TABLET PO SCH (17:30)
== END 2024-07-17 11:31 | disposition home or self-care (01) ==
LOC: MEDSUR 12:02 → ED 12:02 → MEDSUR 13:52
PROVIDERS: ADMIT Internal Medicine; ATTEND Internal Medicine